=== PATIENT | female | born 1945 | race Caucasian/White ===

== ENCOUNTER 2019-07-04 05:27 | Emergency (ER) | payer OTHER, MEDICAID ==
[~2019-07-04] VITALS: Ht 154.9 cm; Wt 54.4 kg
[2019-07-04 05:29] VITALS: BP_SYST 148
--- NOTE | 2019-07-04 05:29 | NUR ---
Patient to ER bed 7 to gown for evaluation. Side rails up. Report given to Gloria BONILLA.
--- NOTE | 2019-07-04 05:33 | NUR ---
ER at bedside examining patient.
--- NOTE | 2019-07-04 05:45 | NUR ---
Pt came to the ED for epitaxis. Reported it has been going on for 15 minutes. Denies trauma. Reports this is not the first ocurrence for pt. Pt has had other instances with similiar symptoms. However, not this bad. Denies n/v/d or fever. No other complaints/injuries noted. Will cont. to monitor.
--- NOTE | 2019-07-04 06:40 | NUR ---
Spoke to pts TATY Pardo reports she is a friend of pt. She states she will be in the ED shortly. Char [phone]
[2019-07-04] MEDS ORDERED: SILVER NITRATE APPLICATOR 1 STICK STICK..EA. TP ONE ×3 (06:45→07:12)
--- NOTE | 2019-07-04 06:50 | NUR ---
No silver nitrate applicators in [facility]. Called pharmacy.
--- NOTE | 2019-07-04 07:01 | NUR ---
Dr. Chapin at bedside administering silver nitrate in R nare. Also miranda suction used. Tolerated well. Bleeding is controlled. Will cont. to monitor.
--- NOTE | 2019-07-04 08:15 | NUR ---
PATIENT'S POA AT BEDSIDE AND NOW GOING TO [facility] TO GET PATIENT CLOTHES. PATIENT RESTING IN BED WITH NO SIGNS OF DISTRESS. WILL CONTINUE TO MONITOR.
[2019-07-04 09:18] VITALS: BP_SYST 131
--- NOTE | 2019-07-04 09:19 | NUR ---
Patient given written and verbal discharge instructions and verbalizes understanding. ER MD discussed with patient the results and treatment provided. Patient in stable condition. ID arm band removed. Rx of NONE given. Patient educated on pain management and to follow up with PMD. Pain Scale 0/10. Opportunity for questions provided and answered. Medication side effect fact sheet provided.
== END 2019-07-04 09:19 | disposition home or self-care (01) ==
LOC: SED 05:27
DX: R04.0 Epistaxis (principal); I10 Essential (primary) hypertension; J44.9 Chronic obstructive pulmonary disease, unspecified; F41.9 Anxiety disorder, unspecified; Z87.891 Personal history of nicotine dependence
CPT/HCPCS: 99282; 99284